=== PATIENT | female | born 1940 | race Caucasian/White ===

== ENCOUNTER → 2017-01-11 | Outpatient (CLI) | payer OTHER ==
[~2017-01-11] MED LIST: ASPIRIN ENTERI325 M1 PO; ASPIRIN PO; ASPIRIN81 M2 PO; BACTRIM DS TABL1 TA1 PO; BIOTIN; CALCIUM 500 + D1 TAB PO; CARBATROL200 MG PO; CARVEDILOL3.125 MG PO; CARVEDILOL6.25 MG PO; CENTRUM PO; COREG PO; FLEXERIL10 MG PO; GLUCOSAMINE CHOND; LIPITOR PO; LISINOPRIL PO; MOTRIN600 M2 PO; NORVASC PO; OMEPRAZOLE; PANTOPRAZOLE SO40 MG PO; PAXIL10 MG PO; PRILOSEC PO; PRILOSEC20 M1 PO; PROTONIX PO; PROTONIX20 MG; PYRIDIUM100 MG PO; ST. JOSEPH ASPI81 M3 PO; SUMATRIPTAN20 MG; TEGRETOL PO; ZINC CHELATE50 MG PO; ZINC30 M1 PO; ZINC50 M1 PO; ZOCOR PO; [UNRECOGNIZED DRUG - OTHER]
--- NOTE | ~2017-01-11 | MY11 ---
[facility] A Service of [facility] RADIOLOGY TEXT RESULTS PATIENT: FAZAL CONDE LOCATION: [facility] : 36 UNIT #: [id number] AGE: [address]: Davon Perry MD SEX: F ORDER DR: [id number] [facility] [address] [place], [place] [address] [id number] O MR#: [id number] Acc #: [id number] NAME: FAZAL CONDE. : 1940 SEX: F STUDY DATE/TIME: 01/11/2017 9:14 UNIT: [facility] ROOM: STUDY DESCRIPTION: MY Mammogram Screening Dig [place] Attending Physician: Davon Perry M.D. Ordering Physician: Davon Perry M.D. Primary Care Physician: Davon Perry M.D. MEDICAL IMAGING REPORT This report is preliminary unless electronic signature is present EXAM Bilateral digital screening with CAD INDICATION Routine screening. No current complaints. No family history of breast cancer. COMPARISON 09/18/2015, 08/20/2014, 05/17/2013 FINDINGS MLO and CC digital views of each breast were obtained. The exam was reviewed with an FDA-approved CAD device. The breasts are mostly fatty replaced. There are stable bilateral calcifications. IMPRESSION No change and no evidence of malignancy. Patients over the age of 40 are entered into a reminder system with target due date for the next mammogram. A result letter will also be sent to the patient. BIRADS: 2 Benign Finding Dictated by... Salomon Beltran M.D. THIS IS AN ELECTRONICALLY VERIFIED REPORT Salomon Beltran M.D. at 01/11/2017 2:07 PM Alycia TD: 01/11/2017 12:14 JOB #: [id number] [facility] A Service of [facility] RADIOLOGY TEXT RESULTS PATIENT: FAZAL CONDE LOCATION: [facility] : 36 UNIT #: [id number] AGE: [address]: Davon Perry MD SEX: F ORDER DR: MEDICAL IMAGING REPORT COPY
== END | disposition home or self-care (01) ==
LOC: CWCC 08:50
DX: Z12.31 Encounter for screening mammogram for malignant neoplasm of breast (principal)
CPT/HCPCS: G0202